=== PATIENT | male | born 1995 | race Caucasian/White ===

== ENCOUNTER 2021-11-16 04:02 | Emergency (ER) | payer OTHER, SELFPAY ==
[2021-11-16 04:29] VITALS: BP 126/79; PULSE 87; RESP 16; TEMP 37.2; O2SAT 100
--- NOTE | 2021-11-16 04:30 | ED.FEVER ---
HPI - Fever General Chief Complaint: Fever Stated Complaint: fever since Time Seen by Provider: 11/16/21 04:09 Source: patient and RN notes reviewed Limitations: no limitations History of Present Illness HPI Narrative: 25-year-old male presented to the emergency department for evaluation of fever and chills. Patient states on night he had onset of fever patient also describes rigors. Patient states that the fever did improve after taking Tylenol and ibuprofen. Patient states that the fever did return tonight and he called the nurse line and was advised to present to the emerge department as his fever was over 105. Patient last took Advil at approximately 3:00. Patient is due for Tylenol in approximately 3 hours. Patient states he is unvaccinated. Patient is unsure of any positive Covid exposure. Patient denies any chest pain or shortness of breath. Patient denies any nausea vomiting or diarrhea. Patient does complain of intermittent headache and fevers and chills. Related Data Allergies Allergy/AdvReac Type Severity Reaction Status Date / Time No Known Allergies Allergy Mild Unverified 08/28/08 13:08 Review of Systems Review of Systems: CONSTITUTIONAL: Intermittent fevers and chills EYES: Denies visual changes, redness, or discharge. ENT: Denies rhinorrhea, congestion, sore throat, or otalgia. CARDIOVASCULAR: Denies chest pain, palpitations, or edema. RESPIRATORY: Denies cough or dyspnea. GASTROINTESTINAL: Denies abdominal pain, nausea, vomiting, or diarrhea. GENITOURINARY: Denies dysuria or hematuria. SKIN: Denies rash or itching. MUSCULOSKELETAL: Denies back pain, joint pain, or myalgia. NEUROLOGIC: Denies headache, numbness, or weakness. PSYCHIATRIC: Denies anxiety or depression. Exam Narrative: APPEARANCE: Well appearing, no pain, no distress, well-nourished. HEAD: normocephalic, atraumatic. EYES: PERRLA/EOMI, conjunctivae clear. RESPIRATORY: Airway patent, respirations nonlabored. Clear to auscultation bilaterally, no rales, rhonchi, wheezing. CARDIOVASCULAR: Regular rate and rhythm without murmurs rubs or gallops. ABDOMINAL: Soft, nontender, nondistended, normal bowel sounds MUSCULOSKELETAL: Moves all extremities. Strength/ROM intact, No edema, No calf tenderness. NEURO: Alert. Cranial nerves II through XII intact. Good gait. Good coordination SKIN: Warm, dry. Normal Color PSYCHIATRIC: Normal affect/mood. Course Vital Signs Vital signs: Vital Signs Temperature 99.0 F 11/16/21 04:29 Pulse Rate 87 11/16/21 04:29 Respiratory Rate 16 11/16/21 04:29 Blood Pressure 126/79 11/16/21 04:29 Pulse Oximetry 100 11/16/21 04:29 Temperature 99.2 F 11/16/21 05:30 Pulse Rate 80 11/16/21 05:30 Respiratory Rate 14 11/16/21 05:30 Blood Pressure 115/68 11/16/21 05:30 Pulse Oximetry 100 11/16/21 05:30 MDM - Fever Lab Data Attestation: I reviewed the patient's lab results. Labs: Lab Results 11/16/21 Range/Units 04:38 SARS-CoV-2 RNA (RT-PCR) Positive A Influenza A Screen Negative Reference Range: Negative Influenza B Screen Negative Reference Range: Negative Discharge Plan Discharge Clinical Impression: Acute viral syndrome Fever Qualifiers: Fever type: unspecified Qualified Code(s): R50.9 - Fever, unspecified Patient Disposition: Home, Self-Care Condition: Stable Instructions: Antibiotic Form, Viral Syndrome (ED), COVID-19 (Coronavirus Disease 2019) (ED) Additional Instructions: Treat fever as directed using Tylenol and ibuprofen. Drink plenty of fluids. Your Covid test is still pending so please quarantine until this is resulted. Have close follow-up with your primary care physician. If you have any worsening symptoms or if you have any questions or concerns then please call or return to the emergency department
[2021-11-16 05:30] VITALS: BP 115/68; PULSE 80; RESP 14; TEMP 37.3; O2SAT 100
[2021-11-16 16:55] LABS: SARS-CoV-2 RNA PCR Positive
== END 2021-11-16 05:32 | disposition home or self-care (01) ==
PROVIDERS: Emergency Provider Emergency Medicine; PCP Internal Medicine
DX: U07.1 COVID-19 (principal); R50.9 Fever, unspecified
CPT/HCPCS: 87804; 99283; C9803; U0003; U0005

== ENCOUNTER 2025-02-07 23:27 | Emergency (ER) | payer OTHER, SELFPAY ==
--- OUTSIDE RECORDS SUMMARY | 2025-02-07 23:29 | XMS_ITS | Encounter Summary ---
Author Organization [facility] Address [address] [place] [address] Care Team Providers Care Hoop Expander Name Role Phone Yandel Mcguire MD Primary Care Provider [phone] Encounter Details Date Type Department Care Team (Late st Contact Info) Description 11/25/2021 MyChart Message Enc [facility] Family & Internal Medicine [id number] [place] [address] Yandel Mcguire MD [address] [place] [phone] David Morin Test Results Social History Tobacco Use Types Packs/Day Years Used Date Smoking Tobacco: Never Smokeless Tobacco: Never Alcohol Use Standard Drinks/Week Comments Yes 15 (1 standard drink = 0.6 oz pu re alcohol) drinks only on weekeneds PHQ-2 Answer Date Recorded PHQ-2 Score 0 12/08/2019 Sex and Gender Information Value Date Recorded Sex Assigned at Not on file Legal Sex Male 7:53 PM CDT Gender Identity Not on file Sexual Orientation Not on file documented as of this encounter Progress Notes * CHARLIE Galvan - 11/26/2021 12:13 PM CST Ok[employer] for note. [employer] documented in this encounter Plan of Treatment Upcoming Encounters Date Type Department Care Team (Late st Contact Info) Description 02/15/2025 8:20 AM CDT Office Visit [facility] Family & Internal Medicine - [id number] [place] [address] Yandel Mcguire MD [facility] [place] [place] [address] documented as of this encounter Visit Diagnoses Not on filedocumented in this encounter Care Teams Hoop Expander Relationship Specialty Start Date End Date Yandel Mcguire MD [address] [place] [address] PCP - General 08/06/16 documented as of this encounter
--- OUTSIDE RECORDS SUMMARY | 2025-02-07 23:29 | XMS_ITS | Encounter Summary ---
Author Organization [facility] Address [address] [place] [address] Care Team Providers Care Bus Transportation Manager Name Role Phone Yandel Mcguire MD Primary Care Provider [phone] Encounter Details Date Type Department Care Team (Late st Contact Info) Description 11/26/2021 MyChart Message Enc [facility] Family & Internal Medicine [address] [address] Yandel Mcguire MD [address] [place] [phone] David Miller Social History Tobacco Use Types Packs/Day Years [...] on file documented as of this encounter Plan of Treatment Upcoming Encounters Date Type Department Care Team (Late st Contact Info) Description 02/15/2025 8:20 AM CDT Office Visit [facility] Family & Internal [address] [address] Yandel Mcguire MD [address] [place] [address] [phone] documented as of this encounter Visit Diagnoses Not on filedocumented in this encounter Care Teams Bus Transportation Manager Relationship Specialty Start Date End Date Yandel Mcguire MD [address] [place] [address] PCP - General 08/06/16 documented as of this encounter
--- OUTSIDE RECORDS SUMMARY | 2025-02-07 23:29 | XMS_ITS | Clinical Summary ---
Author Organization [facility] Address [address] [place] [address] Care Team Providers Care Occupational Medicine Specialist Name Role Phone Yandel Mcguire MD Primary Care Provider [phone] Allergies Active Allergy Reactions Criticality Noted Date Comments Penicillins Unknown 02/03/2014 Childhood allergy Medications cephALEXin (KEFLEX) 500 MG capsule TAKE ONE CAPSULE BY MOUTH TWICE DAILY FOR 7 DAYS 12/08/2022 Active Active Problems Problem Noted Date Diagnosed Date Acute viral syndrome 12/15/2022 Fever 12/15/2022 Resolved Problems Problem Noted Date Diagnosed Date Resolved Date Routine general medical exam ination at a health care facility 12/08/2019 06/22/2020 Immunizations Immunization Administration Dates Next Due Dtap 06/20/2003,06/05/1999,11/13/1998 ,06/29/1998,02/06/1998 Dtap (Generic) 03/29/2013, 3,06/05/1999,11/13/1998,06/29/1998 ,02/06/1998 Hepatitis B Pediatric 06/05/1999,01/02/1998,11/12 Hib Vaccine, Prp-D 06/05/1999,11/13/1998, 998,02/06/1998 MMR (Generic) 06/20/2003,06/05/1999 Menactra 07/26/2015 Opv 06/05/1999 Polio Ipv (Generic) 06/20/2003,06/29/1998,1997 Tdap (Generic) 07/29/2012 Family History Medical History Relation Comments Cancer Mother Diabetes Mother Heart Disease Mother Hypertension Mother Relation Status Comments Mother Social History Tobacco Use Types Packs/Day Years Used Date Smoking Tobacco: Never Smokeless Tobacco: Never Tobacco Cessation:Counseling Given: No Alcohol Use Standard Drinks/Week Comments Yes 15 (1 standard drink = 0.6 oz pu re alcohol) drinks only on weekeneds PHQ-2 Answer Date Recorded Patient Health Questionnaire-2 Score 0 12/15/2022 Sex and Gender Information Value Date Recorded Sex Assigned at Not on file Legal Sex Male 7:53 PM CDT Gender Identity Not on file Sexual Orientation Not on file Last Filed Vital Signs Vital Sign Reading Time Taken Comments Blood Pressure 112/68 12/15/2022 9:41 AM TANGLED YARN SPOOL STRAIGHTENER Pulse 80 12/15/2022 9:41 AM TANGLED YARN SPOOL STRAIGHTENER Temperature 36.2 C (97.2 F) 12/15/2022 9:41 AM TANGLED YARN SPOOL STRAIGHTENER Respiratory Rate 16 12/15/2022 9:41 AM TANGLED YARN SPOOL STRAIGHTENER Oxygen Saturation 98% 12/15/2022 9:41 AM TANGLED YARN SPOOL STRAIGHTENER Inhaled Oxygen Concentration - - Weight 71.2 kg (157 lb) 12/15/2022 9:41 AM TANGLED YARN SPOOL STRAIGHTENER Height 177.8 cm (5' 10 ) 12/15/2022 9:41 AM TANGLED YARN SPOOL STRAIGHTENER Body Mass Index 22.53 12/15/2022 9:41 AM TANGLED YARN SPOOL STRAIGHTENER Plan of Treatment Upcoming Encounters Date Type Department Care Team (Late st Contact Info) Description 02/15/2025 8:20 AM CDT Office Visit [facility] Family & Internal Medicine - [address] [address] Yandel Mcguire MD [address] [place] [id number] Health Maintenance Due Date Last Done Comments Hepatitis C 2015 Annual Physical 12/08/2020 12/08/2019 DTaP, Tdap and Td Vaccines (8 - Td or Tdap) 03/29/2023 03/29/2013, 07/29/2012, 06/20/2003, Additional history exists COVID-19 Vaccine ( season) 2024 Hepatitis B Vaccines Completed 06/05/1999, 01/02/1998, 1997 Meningococcal Vaccine Completed 07/26/2015 HPV Vaccines Aged Out No longer eligi ble based on patient's age to complete this topic Meningococcal B Vaccine Aged Out No l onger eligible based on patient's age to complete this topic Pneumococcal Vaccine: Pediatrics (0 to 5 Years) and At-Risk Patients (6 to 49 Years) Aged Out No longer eligible based on patient's age to complete this topic RSV Immunizations Under 20 Months Aged Out No longer eligible based on patient's age to complete this topic Insurance [facility] Care Teams Occupational Medicine Specialist Relationship Specialty Start Date End Date Yandel Mcguire MD [address] [place] [address] PCP - General 08/06/16
[2025-02-07 23:40] VITALS: BP 152/94; PULSE 67; RESP 16; TEMP 36.9; O2SAT 100
--- NOTE | 2025-02-07 23:54 | ED.LOWEXIN ---
HPI - Extremity Injury (Lower) General Chief Complaint: Extremity Injury, Lower Stated Complaint: bull riding and bull stomped on right knee Time Seen by Provider: 02/07/25 23:37 History of Present Illness HPI Narrative: 29-year-old otherwise healthy male presenting to the emergency department for evaluation of right lower extremity swelling and pain. Patient states he was riding a bolus weekend when it landed on his right lower extremity around the knee. Was able to self extricate and ambulate afterwards. This occurred approximately 4 days ago. He has been walking on it since but this morning knows that he is having some bruising and minor swelling. No new injury. No instability in his knee joint. No history of orthopedic procedures. No history of DVT. Patient does not want any imaging studies. Related Data Allergies Allergy/AdvReac Type Severity Reaction Status Date / Time No Known Allergies Allergy Mild Unverified 08/28/08 13:08 Review of Systems Review of Systems: As reviewed above in HPI Exam Narrative: GENERAL: [Well-appearing, well-nourished, and in no acute distress.] HEAD: [Normocephalic, atraumatic.] EYES: [PERRLA and EOMI.] ENT: Nares clear, no rhinorrhea or epistaxis. Mucous membranes moist. NECK: Supple. CHEST: [Clear to auscultation. No respiratory distress.] HEART: [Regular rate and rhythm]. No murmur heard. [Normal peripheral pulses.] ABDOMEN: [Soft, nondistended], [nontender], [No rigidity or guarding] EXTREMITIES: Normal range of motion. [No edema.] Some minor bruising over the proximal right medial knee and distribution of the sartorius muscle. No ligamentous instability, negative Freya's test, negative Artemio's test, no pain or instability with valgus or varus stress testing of the knee. Plantar dorsiflexion 5/5. Ambulatory without any pain. No effusion. SKIN: Warm, dry, no rash. NEURO: [No focal deficits]. Alert and oriented [x3.] PSYCH: [Normal mood and affect.] Course Vital Signs Vital signs: Vital Signs Pulse Rate 67 02/07/25 23:40 Respiratory Rate 16 02/07/25 23:40 Blood Pressure 152/94 H 02/07/25 23:40 Pulse Oximetry 100 02/07/25 23:40 Pulse Rate 67 02/07/25 23:40 Respiratory Rate 16 02/07/25 23:40 Blood Pressure 152/94 H 02/07/25 23:40 Pulse Oximetry 100 02/07/25 23:40 MDM - Extremity Injury (Lower) MDM Narrative Medical decision making narrative: 29-year-old male presenting with right lower extremity contusion. He was riding a bolus weekend when at landed on his right knee. He was able to get away and ambulate. This occurred 4 days ago. He has some minor bruising over the medial aspect of his right knee near the sartorius muscle distribution. No effusion, no joint instability. Initial plan was to order x-ray images and further evaluation but patient was worried about cost and not having any pain or significant symptoms. Told him that treatment regimen at this time without any clear diagnostics is rest, ice, compression and elevation as well as Tylenol and ibuprofen for any aches or pains. He is ambulatory with a steady gait without any pain and neurovascularly intact and would like to forego any imaging. Patient was given return precautions including worsening pain or swelling and encouraged to follow-up with regular doctor. Prescriptions provided and he was discharged. Medical Records Attestation: I reviewed the patient's medical records. Discharge Plan Discharge Clinical Impression: Contusion of right lower extremity Patient Disposition: Home Condition: Stable Instructions: Antibiotic Form Additional Instructions: Your clinical exam is reassuring and you do have some bruising from the injury but no instability in your ligaments or knee based on exam. If you have any persistent pain or swelling or any worsening symptoms please return to the emergency department for imaging studies. Follow-up with your primary care provider. Patient Language: Croatian Prescriptions: New ibuprofen 800 mg tablet 800 mg PO TID PRN (Reason: pain) Qty: 30 0RF acetaminophen [Tylenol Extra Strength] 500 mg tablet 1,000 mg PO TID PRN (Reason: pain) Qty: 30 0RF Follow-up/Referrals: Shayla,Yandel Abrams MD [Primary Care Provider] - Time of Disposition: 23:53
--- OUTSIDE RECORDS SUMMARY | 2025-02-07 23:59 | XMS_ITS | Encounter Summary ---
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
--- OUTSIDE RECORDS SUMMARY | 2025-02-07 23:59 | XMS_ITS | Encounter Summary ---
Author Organization [facility] Address [address] [place] [address] Care Team Providers Care Dairy Nutrition Consultant Name Role Phone Yandel Mcguire MD Primary Care Provider [phone] Encounter Details Date Type Department Care Team (Late st Contact Info) Description 11/26/2021 MyChart Message Enc [facility] Family & Internal Medicine [address] [address] Yandel Mcguire MD [address] [place] [address] [phone] David Miller Social History Tobacco Use Types [...] Description 02/15/2025 8:20 AM CDT Office Visit [facility] Family & Internal [address] [address] Yandel Mcguire MD [address] [place] [address] [phone] documented as of this encounter Visit Diagnoses Not on filedocumented in this encounter Care Teams Dairy Nutrition Consultant Relationship Specialty Start Date End Date Yandel Mcguire MD [address] [place] [address] PCP - General 08/06/16 documented as of this encounter
--- OUTSIDE RECORDS SUMMARY | 2025-02-07 23:59 | XMS_ITS | Clinical Summary ---
Author Organization [facility] Address [address] [place] [address] Care Team Providers Care Organic Preparation Technician Name Role Phone Yandel Mcguire MD Primary Care Provider [phone] Allergies Active Allergy Reactions Criticality Noted Date [...] Comments Blood Pressure 112/68 12/15/2022 9:41 AM EHR TRAINER Pulse 80 12/15/2022 9:41 AM EHR TRAINER Temperature 36.2 C (97.2 F) 12/15/2022 9:41 AM EHR TRAINER Respiratory Rate 16 12/15/2022 9:41 AM EHR TRAINER Oxygen Saturation 98% 12/15/2022 9:41 AM EHR TRAINER Inhaled Oxygen Concentration - - Weight 71.2 kg (157 lb) 12/15/2022 9:41 AM EHR TRAINER Height 177.8 cm (5' 10 ) 12/15/2022 9:41 AM EHR TRAINER Body Mass Index 22.53 12/15/2022 9:41 AM EHR TRAINER Plan of Treatment Upcoming Encounters Date Type Department Care Team (Late st Contact Info) Description 02/15/2025 8:20 AM CDT Office Visit [facility] Family & Internal Medicine - [address] [address] Yandel Mcguire MD [address] [place] [address] Health Maintenance Due Date Last Done Comments [...] patient's age to complete this topic Insurance [facility] Care Teams Organic Preparation Technician Relationship Specialty Start Date End Date Yandel Mcguire MD [address] [place] [address] PCP - General 08/06/16
[2025-02-08 00:12] VITALS: BP 122/74; PULSE 66; RESP 16; TEMP 36.7; O2SAT 97
== END 2025-02-08 00:14 | disposition home or self-care (01) ==
PROVIDERS: Emergency Provider Student in an Organized Health Care Education/Training Program; PCP Internal Medicine
DX: S80.11XA Contusion of right lower leg, initial encounter (principal); V80.018A Animal-rider injured by fall from or being thrown from other animal in noncollision accident, initial encounter
CPT/HCPCS: 99283